=== PATIENT | male | born 1940 | race Caucasian/White ===

== ENCOUNTER 2018-03-08 08:00 | Outpatient (CLI) | payer BC, MEDICARE ==
[2018-03-08 18:59] LABS: BASOPHILS % (AUTO) 0.9 %; EOSINOPHILS % (AUTO) 0.5 %; HGB - HEMOGLOBIN 14.1 g/dL (14.0-18.0); LYMPHOCYTES # (AUTO) 1.2 10^3/uL (1.5-3.5); LYMPHOCYTES % (AUTO) 21.4 %; MEAN CORPUSCULAR HEMOGLOBIN 32.7 pg (27.0-31.0); MEAN CORPUSCULAR HGB CONC 33.2 g/dL (32.0-36.0); MEAN CORPUSCULAR VOLUME 98.3 fL (80.0-94.0); MEAN PLATELET VOLUME 8.2 fL (7.4-11.4); MONOCYTES # (AUTO) 0.4 10^3/uL (0.0-1.0); MONOCYTES % (AUTO) 6.5 %; NEUTROPHILS # (AUTO) 3.9 10^3/uL (1.5-6.6); NEUTROPHILS % (AUTO) 70.7 %; PLT - PLATELET COUNT 178 10^3/uL (130-450); RED BLOOD COUNT 4.32 10^6/uL (4.70-6.10); WHITE BLOOD COUNT 5.5 x10^3/uL (4.8-10.8)
[2018-03-08 19:24] LABS: ALBUMIN 4.1 g/dL (3.2-5.5); ALBUMIN/GLOBULIN RATIO 1.6 (1.0-2.2); ALKALINE PHOSPHATASE 80 IU/L (42-121); ALT ALANINE AMINOTRANSFERASE 21 IU/L (10-60); AST ASPARTATE AMINOTRANSFERASE 33 IU/L (10-42); BILIRUBIN,TOTAL 0.6 mg/dL (0.2-1.0); BUN - BLOOD UREA NITROGEN 17 mg/dL (6-20); CALCIUM 9.1 mg/dL (8.5-10.3); CARBON DIOXIDE - CO2 27 mmol/L (21-32); CHLORIDE 103 mmol/L (101-111); CHOL/HDL RATIO 4.2 (<5.0); CHOLESTEROL 215 mg/dL; GFR - MDRD 73 (>89); GLUCOSE 138 mg/dL (70-100); HDL CHOLESTEROL 51 mg/dL; LDL CHOLESTEROL,CALCULATED 110 mg/dL; LDL/HDL RATIO 2.2 (<3.6); SODIUM 138 mmol/L (135-145); TOTAL PROTEIN 6.7 g/dL (6.7-8.2); VLDL CHOLESTEROL 54 mg/dL
[2018-03-08 21:21] LABS: HB2 TOTAL 15.6 g/dL; HEMOGLOBIN A1C 0.64 g/dL; HEMOGLOBIN A1C % 5.9 % (4.6-6.2)
== END 2018-03-08 08:01 | disposition home or self-care (01) ==
LOC: LAB.WCP 08:00
PROVIDERS: ATTEND Family Medicine
DX: R73.01 Impaired fasting glucose (principal); E78.5 Hyperlipidemia, unspecified; G30.9 Alzheimer's disease, unspecified
CPT/HCPCS: 36415; 80053; 80061; 83036; 83721; 85025

== ENCOUNTER 2018-09-18 08:12 | Outpatient (CLI) | payer BC, MEDICARE ==
[2018-09-18 13:55] LABS: CHOL/HDL RATIO 3.6 (<5.0); CHOLESTEROL 182 mg/dL; HDL CHOLESTEROL 51 mg/dL; LDL CHOLESTEROL,CALCULATED 100 mg/dL; VLDL CHOLESTEROL 31 mg/dL
== END 2018-09-18 23:59 | disposition home or self-care (01) ==
LOC: LAB.WCP 08:12
PROVIDERS: ATTEND Nurse Practitioner
DX: E78.5 Hyperlipidemia, unspecified (principal)
CPT/HCPCS: 36415; 80061; 83721

== ENCOUNTER 2019-05-13 08:00 | Outpatient (CLI) | payer BC ==
[2019-05-13 13:10] LABS: ALBUMIN/GLOBULIN RATIO 1.5 (1.0-2.2); ALKALINE PHOSPHATASE 70 IU/L (42-121); ALT ALANINE AMINOTRANSFERASE 25 IU/L (10-60); AST ASPARTATE AMINOTRANSFERASE 27 IU/L (10-42); BILIRUBIN,TOTAL 0.6 mg/dL (0.2-1.0); BUN - BLOOD UREA NITROGEN 17 mg/dL (6-20); CALCIUM 8.9 mg/dL (8.5-10.3); CARBON DIOXIDE - CO2 26 mmol/L (21-32); CHLORIDE 104 mmol/L (101-111); CHOL/HDL RATIO 3.5 (<5.0); CHOLESTEROL 172 mg/dL; GFR - MDRD 72 (>89); GLUCOSE 111 mg/dL (70-100); HDL CHOLESTEROL 49 mg/dL; LDL CHOLESTEROL,CALCULATED 92 mg/dL; LDL/HDL RATIO 1.9 (<3.6); SODIUM 140 mmol/L (135-145); TOTAL PROTEIN 6.6 g/dL (6.7-8.2); VLDL CHOLESTEROL 31 mg/dL
[2019-05-13 13:17] LABS: HB2 TOTAL 15.3 g/dL; HEMOGLOBIN A1C 0.61 g/dL; HEMOGLOBIN A1C % 5.8 % (4.6-6.2)
== END 2019-05-13 23:59 | disposition home or self-care (01) ==
LOC: LAB.WCP 08:00
PROVIDERS: ATTEND Family Medicine
DX: E78.5 Hyperlipidemia, unspecified (principal); R73.01 Impaired fasting glucose; R41.3 Other amnesia
CPT/HCPCS: 36415; 80053; 80061; 83036; 83721; 84443

== ENCOUNTER 2019-10-22 10:48 | Outpatient (CLI) | payer BC ==
--- NOTE | 2019-10-22 14:35 | XRAY Report ---
Reason: COUGH Procedure Date: 10/22/2019 Accession Number: [id number] / [id number] Procedure: WCP - Chest 2 View X-Ray CPT Code: 94776 Final Report FULL RESULT: EXAM: CHEST RADIOGRAPHY. EXAM DATE: 10/22/2019 10:48 AM. CLINICAL HISTORY: Cough. COMPARISON: CHEST 2 VIEW PA/LAT 08/01/2017 10:27 PM. TECHNIQUE: 2 views. FINDINGS: Lungs/Pleura: There are increased pulmonary markings at the medial right lung base which are new, no air bronchogram formation or convincing lobar consolidation. No other focal opacities. No pleural effusion or pneumothorax. Mediastinum: Redemonstration of tortuous aorta and borderline mild cardiomegaly. Other: None. IMPRESSION: Increased pulmonary markings at the medial right lung base, possibly early airspace disease/atypical pneumonia. RADIA
== END 2019-10-22 23:59 | disposition home or self-care (01) ==
LOC: DI.WCP 10:48
PROVIDERS: ATTEND Family Medicine
DX: R05 Cough (principal); R91.8 Other nonspecific abnormal finding of lung field
CPT/HCPCS: 71046

== ENCOUNTER 2020-08-06 15:38 | Outpatient (CLI) | payer BC | END 2020-08-06 15:39 | disposition home or self-care (01) | LOC: COV 15:38 | PROVIDERS: ATTEND Family Medicine | DX: R50.9 Fever, unspecified (principal); R05 Cough; Z20.828 Contact with and (suspected) exposure to other viral communicable diseases ==

== ENCOUNTER 2020-11-15 15:17 | Emergency (ER) | payer BC ==
[2020-11-15 15:33] VITALS: BP 145/90
--- NOTE | 2020-11-15 16:08 | ED Physician Documentation ---
PD HPI LOWER EXT INJURY - Stated complaint Stated Complaint: FALL, LEFT KNEE INJURY - Chief complaint Chief Complaint: Trauma Ext - History obtained from History obtained from: Patient, Family - Additional information Additional information: Patient comes emergency department chief complaint of tripping and falling on some exercise equipment. He states that he injured his left kneeDates that she thinks the patient tripped on a bar and actually hit his knee on the floor. He has been able to ambulate on it, but states she had to get a cane they had at home and have him use it, because he was very distraught while trying to walk. Patient denies any other injuries anywhere else. confirms this. Patient has some degree of dementia, and is able to answer questions for himself, but needs to verify that answers are correct. Review of Systems Ten Systems: 10 systems reviewed and negative Constitutional: reports: Reviewed and negative Eyes: reports: Reviewed and negative Ears: reports: Reviewed and negative Nose: reports: Reviewed and negative Throat: reports: Reviewed and negative Cardiac: reports: Reviewed and negative Respiratory: reports: Reviewed and negative GI: reports: Reviewed and negative : reports: Reviewed and negative Skin: reports: Reviewed and negative Musculoskeletal: reports: Joint pain, Pain with weight bearing Neurologic: reports: Reviewed and negative Psychiatric: reports: Reviewed and negative Endocrine: reports: Reviewed and negative Immunocompromised: reports: Reviewed and negative PD PAST MEDICAL HISTORY - Past Medical History Cardiovascular: High cholesterol : Benign prostate hypertrophy Musculoskeletal: Osteoarthritis - Past Surgical History Past Surgical History: Yes General: Appendectomy Ortho: Spine surgery HEENT: Tonsil/Adenoidectomy - Allergies Allergies/Adverse Reactions: Allergies Allergy/AdvReac Type Severity Reaction Status Date / Time No Known Drug Allergies Allergy Verified 11/15/20 15:33 - Social History Does the pt smoke?: No Smoking Status: Never smoker Does the pt drink ETOH?: Yes Does the pt have substance abuse?: No - Immunizations Immunizations are current?: Yes PD ED PE NORMAL - Vitals Vital signs reviewed: Yes - General General: No acute distress, Well developed/nourished, Other (Patient is alert and answers questions appropriately.) - HEENT HEENT: Atraumatic, PERRL, EOMI, Moist mucous membranes - Neck Neck: Supple, no meningeal sign - Respiratory Respiratory: No respiratory distress - Derm Derm: Normal color, Warm and dry, No rash, Other (Mild contusion left superior knee at superior edge of patella) - Extremities Extremities: No deformity, No edema, No calf tenderness / cord, Other (No left knee edema. No deformity. No AP or mediolateral instability. No effusion. Mild pain with range of motion.) - Neuro Neuro: Alert and oriented X 3 - Psych Psych: Normal mood, Normal affect Results - Vitals Vitals: Vital Signs - 24 hr 11/15/20 15:27 Temperature 35.8 C L Heart Rate 68 Respiratory 14 Rate Blood Pressure 145/90 H O2 Saturation 95 Oxygen O2 Source Room air - Rads (name of study) L knee XR Radiology: Final report received, EMP read indepedently, See rad report (Negative) PD MEDICAL DECISION MAKING - ED course Complexity details: reviewed results, re-evaluated patient, considered differential, d/w patient, d/w family ED course: Due to the degree of pain with weightbearing, the patient was worked up with x- ray series of left knee. The left knee x-ray series was negative. I discussed symptomatic management at home for this patient, as well as the usual indications for return. Departure - Departure Disposition: 01 Home, Self Care Clinical Impression: Contusion of left knee Qualifiers: Encounter type: initial encounter Qualified Code(s): S80.02XA - Contusion of left knee, initial encounter Condition: Stable Instructions: ED Contusion Lower Ext Comments: The x-ray series looks good. There is no evidence of any breaks in your bones. You have most likely bruised your knee, which is caused the pain you are having. You may use ice, ibuprofen and Tylenol for this. You may use the cane or a walker to help you get around until your knee is feeling better.
--- NOTE | 2020-11-15 16:39 | XRAY Report ---
PROCEDURE: Knee 3 View LT INDICATIONS: pain/injury TECHNIQUE: 3 views of the left knee(s) were acquired. COMPARISON: None. FINDINGS: Bones: No fractures or dislocations. No suspicious bony lesions. Soft tissues: No joint effusion. No suspicious soft tissue calcifications. IMPRESSION: No visualized acute fracture or dislocation. However, occult injury cannot be excluded. Recommend short interval imaging follow-up in 7-10 days as clinically indicated for additional evalua tion. Reviewed by: Gini Bautista MD on 11/15/2020 4:38 PM PST Approved by: Gini Bautista MD on 11/15/2020 4:38 PM PST Station ID: [id number]
== END 2020-11-15 17:16 | disposition home or self-care (01) ==
LOC: ED 15:17
DX: S80.02XA Contusion of left knee, initial encounter (principal); W01.0XXA Fall on same level from slipping, tripping and stumbling without subsequent striking against object, initial encounter; Y93.A9 Activity, other involving cardiorespiratory exercise; Y92.39 Other specified sports and athletic area as the place of occurrence of the external cause
CPT/HCPCS: 99283

== ENCOUNTER 2020-12-08 08:00 | Outpatient (CLI) | payer BC ==
[2020-12-08 12:07] LABS: BASOPHILS % (AUTO) 0.7 %; EOSINOPHILS # (AUTO) 0.1 10^3/uL (0.0-0.7); HCT - HEMATOCRIT 43.7 % (42.0-52.0); HGB - HEMOGLOBIN 14.3 g/dL (14.0-18.0); LYMPHOCYTES # (AUTO) 1.7 10^3/uL (1.5-3.5); LYMPHOCYTES % (AUTO) 30.1 %; MEAN CORPUSCULAR HEMOGLOBIN 32.6 pg (27.0-31.0); MEAN CORPUSCULAR HGB CONC 32.7 g/dL (32.0-36.0); MEAN CORPUSCULAR VOLUME 99.8 fL (80.0-94.0); MEAN PLATELET VOLUME 9.7 fL (7.4-11.4); MONOCYTES # (AUTO) 0.4 10^3/uL (0.0-1.0); MONOCYTES % (AUTO) 7.8 %; NEUTROPHILS # (AUTO) 3.2 10^3/uL (1.5-6.6); NEUTROPHILS % (AUTO) 59.2 %; PLT - PLATELET COUNT 225 10^3/uL (130-450); RED BLOOD COUNT 4.38 10^6/uL (4.70-6.10); RED CELL DISTRIBUTION WIDTH 12.6 % (12.0-15.0); WHITE BLOOD COUNT 5.5 x10^3/uL (4.8-10.8)
[2020-12-08 12:49] LABS: ALBUMIN 4.3 g/dL (3.2-5.5); ALBUMIN/GLOBULIN RATIO 1.6 (1.0-2.2); BILIRUBIN,TOTAL 0.4 mg/dL (0.2-1.0); CALCIUM 9.3 mg/dL (8.5-10.3); CREATININE 1.1 mg/dL (0.6-1.2); POTASSIUM 4.1 mmol/L (3.5-5.0)
[2020-12-08 13:00] LABS: CHOL/HDL RATIO 3.8 (<5.0); CHOLESTEROL 191 mg/dL; HDL CHOLESTEROL 50 mg/dL; LDL CHOLESTEROL,CALCULATED 106 mg/dL; LDL/HDL RATIO 2.1 (<3.6); TRIGLYCERIDES 175 mg/dL; VLDL CHOLESTEROL 35 mg/dL
[2020-12-08 13:36] LABS: ESTIMATED AVERAGE GLUCOSE 123 mg/dL (70-100); HEMOGLOBIN A1c% 5.9 % (4.27-6.07)
== END 2020-12-08 23:59 | disposition home or self-care (01) ==
LOC: LAB.WCP 08:00
PROVIDERS: ATTEND Internal Medicine
DX: E78.5 Hyperlipidemia, unspecified (principal); R41.89 Other symptoms and signs involving cognitive functions and awareness; R73.01 Impaired fasting glucose; G30.9 Alzheimer's disease, unspecified
CPT/HCPCS: 36415; 80053; 80061; 82607; 82746; 83036; 83721; 85025

== ENCOUNTER 2021-04-05 08:00 | Outpatient (CLI) | payer BC ==
[2021-04-05 18:04] LABS: BASOPHILS % (AUTO) 0.6 %; EOSINOPHILS # (AUTO) 0.1 10^3/uL (0.0-0.7); EOSINOPHILS % (AUTO) 1.9 %; HCT - HEMATOCRIT 45.5 % (42.0-52.0); LYMPHOCYTES # (AUTO) 1.4 10^3/uL (1.5-3.5); LYMPHOCYTES % (AUTO) 27.7 %; MEAN CORPUSCULAR HEMOGLOBIN 32.8 pg (27.0-31.0); MEAN CORPUSCULAR VOLUME 99.6 fL (80.0-94.0); MEAN PLATELET VOLUME 9.6 fL (7.4-11.4); MONOCYTES # (AUTO) 0.4 10^3/uL (0.0-1.0); NEUTROPHILS # (AUTO) 3.2 10^3/uL (1.5-6.6); NEUTROPHILS % (AUTO) 62.4 %; PLT - PLATELET COUNT 241 10^3/uL (130-450); RED BLOOD COUNT 4.57 10^6/uL (4.70-6.10); RED CELL DISTRIBUTION WIDTH 12.5 % (12.0-15.0); WHITE BLOOD COUNT 5.2 x10^3/uL (4.8-10.8)
[2021-04-05 18:12] LABS: ALBUMIN 4.3 g/dL (3.2-5.5); ALBUMIN/GLOBULIN RATIO 1.4 (1.0-2.2); ALKALINE PHOSPHATASE 94 IU/L (42-121); ALT ALANINE AMINOTRANSFERASE 16 IU/L (10-60); AST ASPARTATE AMINOTRANSFERASE 19 IU/L (10-42); BILIRUBIN,TOTAL 0.5 mg/dL (0.2-1.0); BUN - BLOOD UREA NITROGEN 14 mg/dL (6-20); CALCIUM 8.8 mg/dL (8.5-10.3); CARBON DIOXIDE - CO2 28 mmol/L (21-32); CHLORIDE 102 mmol/L (101-111); CHOLESTEROL 219 mg/dL; GFR - MDRD 72 (>89); GLUCOSE 103 mg/dL (70-100); HDL CHOLESTEROL 44 mg/dL; LDL CHOLESTEROL,CALCULATED 147 mg/dL; LDL/HDL RATIO 3.3 (<3.6); SODIUM 138 mmol/L (135-145); TOTAL PROTEIN 7.4 g/dL (6.7-8.2); TRIGLYCERIDES 139 mg/dL; VLDL CHOLESTEROL 28 mg/dL
[2021-04-05 18:36] LABS: FOLATE 17.44 ng/mL (5.90 - >24.8)
== END 2021-04-05 23:59 | disposition home or self-care (01) ==
LOC: LAB.WCP 08:00
PROVIDERS: ATTEND Internal Medicine
DX: R41.89 Other symptoms and signs involving cognitive functions and awareness (principal); N40.1 Benign prostatic hyperplasia with lower urinary tract symptoms; Z79.899 Other long term (current) drug therapy; E78.00 Pure hypercholesterolemia, unspecified
CPT/HCPCS: 36415; 80053; 80061; 82607; 82746; 83721; 84153; 85025

== ENCOUNTER 2022-04-14 09:56 | Outpatient (CLI) | payer BC | END 2022-04-14 09:57 | disposition critical access hospital (66) | LOC: EMS 09:56 | DX: R55 Syncope and collapse (principal); R11.2 Nausea with vomiting, unspecified; R29.810 Facial weakness | CPT/HCPCS: A0425; A0427 ==

== ENCOUNTER 2022-04-14 10:00 | Emergency (ER) | payer BC ==
[2022-04-14] MEDS ORDERED: SODIUM CHLORIDE 0.9% 1,000 ML IV STA (10:22)
[2022-04-14 10:29] LABS: BASOPHILS % (AUTO) 0.6 %; EOSINOPHILS % (AUTO) 0.6 %; HCT - HEMATOCRIT 43.1 % (42.0-52.0); HGB - HEMOGLOBIN 14.8 g/dL (14.0-18.0); LYMPHOCYTES # (AUTO) 1.4 10^3/uL (1.5-3.5); MEAN CORPUSCULAR HEMOGLOBIN 33.1 pg (27.0-31.0); MEAN CORPUSCULAR HGB CONC 34.3 g/dL (32.0-36.0); MEAN CORPUSCULAR VOLUME 96.4 fL (80.0-94.0); MEAN PLATELET VOLUME 9.2 fL (7.4-11.4); MONOCYTES # (AUTO) 0.4 10^3/uL (0.0-1.0); MONOCYTES % (AUTO) 6.3 %; NEUTROPHILS # (AUTO) 5.1 10^3/uL (1.5-6.6); NEUTROPHILS % (AUTO) 72.4 %; PLT - PLATELET COUNT 202 10^3/uL (130-450); RED BLOOD COUNT 4.47 10^6/uL (4.70-6.10); RED CELL DISTRIBUTION WIDTH 12.6 % (12.0-15.0)
[2022-04-14 10:40] LABS: INR 1.1 (0.8-1.2); PT - PROTHROMBIN TIME 12.4 secs (9.9-12.6)
[2022-04-14 10:45] LABS: ALBUMIN/GLOBULIN RATIO 1.3 (1.0-2.2); BILIRUBIN,TOTAL 0.7 mg/dL (0.2-1.0); CALCIUM 9.2 mg/dL (8.5-10.3); CREATININE 1.2 mg/dL (0.6-1.2); POTASSIUM 3.9 mmol/L (3.5-5.0)
--- NOTE | 2022-04-14 10:58 | CT Report ---
PROCEDURE: HEAD WO INDICATIONS: facial droop, resolved TECHNIQUE: Noncontrast 4.5 mm thick angled axial sections acquired from the foramen magnum to the vertex. For r adiation dose reduction, the following was used: automated exposure control, adjustment of mA and/or kV according to patient size. COMPARISON: None. FINDINGS: Image quality: Excellent. CSF spaces: Basal cisterns are patent. No extra-axial fluid collections. Ventricles are normal in size and shape. Brain: There is moderate cerebral volume loss. Mild periventricular white matter chronic small vesse l ischemic changes are present. No midline shift. No intracranial masses or hemorrhage. Peoples-white matter interface is normal. Skull and face: Calvarium and visualized facial bones are intact, without suspicious lesions. Sinuses: There is an air-fluid level in the left maxillary sinus. Mastoids are clear. IMPRESSION: 1. No acute intracranial abnormality. 2. Cerebral volume loss and periventricular white matter chronic small vessel treatment changes. 3. Left maxillary sinusitis. Reviewed by: David Orellana MD on 04/14/2022 10:57 AM PDT Approved by: David Orellana MD on 04/14/2022 10:57 AM PDT Station ID: [id number]
--- NOTE | 2022-04-14 11:00 | ED Physician Documentation ---
PD HPI SYNCOPE - Stated complaint Stated Complaint: SOA/NEAR SYNCOPE - Chief complaint Chief Complaint: Neuro - History obtained from History obtained from: Patient, Family, EMS - Additional information Additional information: The patient is brought to the emergency department by EMS for chief complaint of vomiting and near syncopal episode x2. The patient denies any shortness of breath or chest pain. He does not now feel nauseated. The medics thought that the patient had a left facial droop in route, but no weakness was noted elsewhere. The patient's near syncopal episodes occurred once in the presence of his friends and once in the presence of the medics. Patient's states that he had just finished eating breakfast with friends when the first episode happened. Review of Systems Ten Systems: 10 systems reviewed and negative Constitutional: reports: Reviewed and negative Eyes: reports: Reviewed and negative Ears: reports: Reviewed and negative Nose: reports: Reviewed and negative Throat: reports: Reviewed and negative Cardiac: reports: Reviewed and negative Respiratory: reports: Reviewed and negative GI: reports: Reviewed and negative : reports: Reviewed and negative Skin: reports: Reviewed and negative Musculoskeletal: reports: Reviewed and negative Neurologic: reports: Reviewed and negative Psychiatric: reports: Reviewed and negative Endocrine: reports: Reviewed and negative Immunocompromised: reports: Reviewed and negative PD PAST MEDICAL HISTORY - Past Medical History Cardiovascular: High cholesterol Neuro: Alzhiemer's : Benign prostate hypertrophy Musculoskeletal: Osteoarthritis - Past Surgical History Past Surgical History: Yes General: Appendectomy Ortho: Spine surgery HEENT: Tonsil/Adenoidectomy - Allergies Allergies/Adverse Reactions: Allergies Allergy/AdvReac Type Severity Reaction Status Date / Time No Known Drug Allergies Allergy Verified 11/15/20 15:33 - Social History Does the pt smoke?: No Smoking Status: Never smoker Does the pt drink ETOH?: Yes Does the pt have substance abuse?: No - Immunizations Immunizations are current?: Yes PD ED PE NORMAL - Vitals Vital signs reviewed: Yes - General General: No acute distress, Well developed/nourished, Other (The patient is alert and though initially vomiting, by the time of full exam appears comfortable and in no distress.) - HEENT HEENT: Atraumatic, PERRL, EOMI, Moist mucous membranes - Neck Neck: Supple, no meningeal sign - Cardiac Cardiac: RRR, No murmur, Strong equal pulses - Respiratory Respiratory: No respiratory distress, Clear bilaterally - Abdomen Abdomen: Soft, Non tender, Non distended - Derm Derm: Normal color, Warm and dry, No rash - Extremities Extremities: No deformity, No edema - Neuro Neuro: credit and collections representative 2-12 intact (No facial droop whatsoever on exam.), No motor deficit (5+ strength bilateral upper and lower extremities, equal.), No sensory deficit, Normal speech (Clear with good articulation.), Other (Alert, answers questions clearly, though does not have recollection of the incident this morning.) - Psych Psych: Normal mood, Normal affect Results - Vitals Vitals: Vital Signs - 24 hr 04/14/22 04/14/22 10:05 12:13 Temperature 35.9 C L 36.7 C Heart Rate 59 L 69 Respiratory 18 17 Rate Blood Pressure 113/77 144/77 H O2 Saturation 97 93 Oxygen O2 Source Room air - EKG (time done) 1127 Rate: Rate (enter#) (66) Rhythm: NSR [place]: Normal, Anterior hemiblock Intervals: Normal CA QRS: Normal Ischemia: Normal ST segments Compare to prior EKG: Old EKG unavailable Computer interpretation: Agree with computer - Labs Labs: Laboratory Tests 04/14/22 04/14/22 04/14/22 10:23 10:23 10:23 WBC 7.0 RBC 4.47 L Hgb 14.8 Hct 43.1 MCV 96.4 H MCH 33.1 H MCHC 34.3 RDW 12.6 Plt Count 202 MPV 9.2 Neut # (Auto) 5.1 Lymph # (Auto) 1.4 L [place] # (Auto) 0.4 Eos # (Auto) 0.0 Baso # (Auto) 0.0 Absolute Nucleated RBC 0.00 Nucleated RBC % 0.0 PT 12.4 INR 1.1 Sodium 138 Potassium 3.9 Chloride 102 Carbon Dioxide 24 Anion Gap 12.0 BUN 15 Creatinine 1.2 Estimated GFR (MDRD) 58 L Glucose 133 H Calcium 9.2 Total Bilirubin 0.7 AST 23 ALT 19 Alkaline Phosphatase 93 Troponin I High Sens Total Protein 7.0 Albumin 4.0 Globulin 3.0 Albumin/Globulin Ratio 1.3 Lipase 28 04/14/22 10:23 WBC RBC Hgb Hct MCV MCH MCHC RDW Plt Count MPV Neut # (Auto) Lymph # (Auto) [place] # (Auto) Eos # (Auto) Baso # (Auto) Absolute Nucleated RBC Nucleated RBC % PT INR Sodium Potassium Chloride Carbon Dioxide Anion Gap BUN Creatinine Estimated GFR (MDRD) Glucose Calcium Total Bilirubin AST ALT Alkaline Phosphatase Troponin I High Sens 5.6 Total Protein Albumin Globulin Albumin/Globulin Ratio Lipase - Rads (name of study) CT head Radiology: Final report received, EMP read indepedently, See rad report (nad) PD MEDICAL DECISION MAKING - ED course Complexity details: reviewed results, re-evaluated patient, considered differential, d/w patient, d/w family ED course: The patient was seen immediately upon arrival the emergency department and since sent for CT scan of the head. Laboratory studies were also obtained. I did not feel that the patient qualified as a code stroke, because he did not have any neurologic deficits on my exam upon arrival, the reported to have a left facial droop by medics. The patient has a history of Alzheimer's and lives at home with his , who did come to be with him in the ED and contributed to the hi story. The patient's work-up was unremarkable. He was feeling better after fluids, and I felt he was stable for discharge. I have discussed with patient and the need to drink plenty of fluid at home and the usual indications for follow-up and return. Departure - Departure Disposition: 01 Home, Self Care Clinical Impression: Near syncope Condition: Stable Instructions: ED Near Syncope Vasovagal Comments: The laboratory studies, EKG, and head CT all look good. There is no evidence of a heart attack or stroke on exam or testing. You have been treated with a liter of saline solution, as it seems you have been not been drinking enough water lately. If the fainting or near fainting episodes become recurrent, you will need to follow-up with your primary doctor to discuss referral to cardiology. Discharge Date/Time: 04/14/22 13:09
[2022-04-14 12:59] VITALS: BP 144/77
== END 2022-04-14 13:09 | disposition home or self-care (01) ==
LOC: EDUNIT# → ED 10:00
DX: R55 Syncope and collapse (principal)
CPT/HCPCS: 36415; 80053; 83690; 84484; 85025; 85610; 93005; 96360; 99283

== ENCOUNTER 2023-05-12 00:13 | Outpatient (CLI) | payer BC | END 2023-05-12 23:59 | disposition critical access hospital (66) | LOC: EMS 00:13 | DX: R11.2 Nausea with vomiting, unspecified (principal); R40.0 Somnolence; R10.813 Right lower quadrant abdominal tenderness; R14.0 Abdominal distension (gaseous) | CPT/HCPCS: A0425; A0429 ==

== ENCOUNTER 2023-05-12 00:27 | Emergency (ER) | payer BC ==
--- NOTE | 2023-05-12 00:27 | ED Physician Documentation ---
PD HPI NVD - Stated complaint Stated Complaint: N/V - History obtained from History obtained from: EMS - Additonal information Additional information: BIBA. HPI from EMS (patient is baseline demented, cannot contribute to HPI/ROS). Per staff at patient's NH, he has been vomiting since this morning , increasing in frequency this evening with distended abdomen and coffee-ground appearance to emesis. FSBS by EMS 135. Patient is DNR. Review of Systems Unable to obtain: Dementia PD PAST MEDICAL HISTORY - Past Medical History Neuro: Dementia : Benign prostate hypertrophy - Present Medications Home Medications: Ambulatory Orders Medication Instructions Recorded Confirmed Acetaminophen [Tylenol] 500 mg PO Q4HR PRN 05/12/23 05/12/23 Bismuth Subsalicylate [[place] 524 mg PO DAILY PRN 05/12/23 05/12/23 Bismuth] Finasteride [Proscar] 5 mg PO DAILY 05/12/23 05/12/23 Hyoscyamine Sulfate 0.125 mg PO Q4HR PRN 05/12/23 05/12/23 LORazepam [Ativan] 1 mg PO Q6HR PRN 05/12/23 05/12/23 Loperamide HCl [Imodium A-D] 2 mg PO ONCE PRN 05/12/23 05/12/23 Magnesium Hydroxide [Milk of 2,400 mg PO DAILY PRN 05/12/23 05/12/23 Magnesia] Memantine HCl [Memantine HCl ER] 28 mg PO DAILY 05/12/23 05/12/23 Menthol/Zinc Oxide [Calmoseptine BID PRN 05/12/23 Ointment] Morphine Sulfate [Ms Contin] 15 mg PO Q4HR PRN 05/12/23 05/12/23 Neomycin Yu/Bacitrac Zn/Poly 28 gm TP DAILY PRN 05/12/23 05/12/23 [Triple Antibiotic Ointment] Nitrofurantoin [Macrobid] 100 mg PO BID #14 cap 05/12/23 Promethazine [Phenergan] 25 mg PO Q6H PRN 05/12/23 05/12/23 Rivastigmine Tartrate 4.5 mg PO BID 05/12/23 05/12/23 [Rivastigmine] Senna [Senokot] 8.6 mg PO BID 05/12/23 05/12/23 Simvastatin [Zocor] 20 mg PO DAILY 05/12/23 05/12/23 bisacodyL [Onelax] 10 mg RC DAILY PRN 05/12/23 05/12/23 metroNIDAZOLE 0.75% GEL [Flagyl 1 applic TOP DAILY 05/12/23 05/12/23 Gel] - Allergies Allergies/Adverse Reactions: Allergies Allergy/AdvReac Type Severity Reaction Status Date / Time No Known Drug Allergies Allergy Verified 05/12/23 00:47 - Living Situation Living Arrangement: reports: correction PD ED PE NORMAL - Vitals Vital signs reviewed: Yes - General General: No acute distress, Well developed/nourished, Other (drowsy, awakens to voice, fleeting eye contact. follows few commands. does not answer questions) - HEENT HEENT: Moist mucous membranes - Cardiac Cardiac: RRR - Respiratory Respiratory: No respiratory distress - Abdomen Abdomen: Soft, Non tender - Derm Derm: Normal color, Warm and dry PD ED PE EXPANDED - Respiratory Respiratory: Other (bibasilar rales) - Abdomen Abdomen: Decreased BS, Distended Results - Vitals Vitals: Oxygen O2 Source Nasal cannula - Labs Labs: Microbiology 05/12/23 03:05 Urine Culture - Final Urine,Clean Catch Klebsiella Pneumoniae Laboratory Tests 05/12/23 05/12/23 05/12/23 01:10 01:10 01:10 WBC 8.7 RBC 4.14 L Hgb 13.5 L Hct 40.5 L MCV 97.8 H MCH 32.6 H MCHC 33.3 RDW 13.3 Plt Count 236 MPV 8.9 Neut # (Auto) 6.8 H Lymph # (Auto) 0.9 L [place] # (Auto) 0.9 Eos # (Auto) 0.0 Baso # (Auto) 0.0 Absolute Nucleated RBC 0.00 Nucleated RBC % 0.0 PT 13.1 H INR 1.2 APTT 27.1 Sodium 136 Potassium 4.7 H Chloride 99 L Carbon Dioxide 32 Anion Gap 5.0 L BUN 16 Creatinine 1.1 Estimated GFR (MDRD) 64 L Glucose 135 H Calcium 9.2 Total Bilirubin 0.4 AST 20 ALT 16 Alkaline Phosphatase 96 Total Protein 7.3 Albumin 4.0 Globulin 3.3 Albumin/Globulin Ratio 1.2 Lipase 8 L Urine Color Urine Clarity Urine pH Ur Specific [place] Urine Protein Urine Glucose (UA) Urine Ketones Urine Occult Blood Urine Nitrite Urine Bilirubin Urine Urobilinogen Ur Leukocyte Esterase Urine RBC Urine WBC Ur Squamous Epith Cells Urine Bacteria Ur Microscopic Review Urine Culture Comments 05/12/23 03:05 WBC RBC Hgb Hct MCV MCH MCHC RDW Plt Count MPV Neut # (Auto) Lymph # (Auto) [place] # (Auto) Eos # (Auto) Baso # (Auto) Absolute Nucleated RBC Nucleated RBC % PT INR APTT Sodium Potassium Chloride Carbon Dioxide Anion Gap BUN Creatinine Estimated GFR (MDRD) Glucose Calcium Total Bilirubin AST ALT Alkaline Phosphatase Total Protein Albumin Globulin Albumin/Globulin Ratio Lipase Urine Color YELLOW Urine Clarity SL. CLOUDY Urine pH 7.0 Ur Specific [place] <=1.005 Urine Protein TRACE Urine Glucose (UA) NEGATIVE Urine Ketones NEGATIVE Urine Occult Blood SMALL H Urine Nitrite POSITIVE H Urine Bilirubin NEGATIVE Urine Urobilinogen 0.2 (NORMAL) Ur Leukocyte Esterase SMALL H Urine RBC 11-25 H Urine WBC 11-25 H Ur Squamous Epith Cells RARE Squamous Urine Bacteria Few Ur Microscopic Review INDICATED Urine Culture Comments INDICATED - Rads (name of study) CT A/P Relevant Findings:: Prelim report reviewed, See rad report chest xray Relevant Findings:: Prelim report reviewed, See rad report PD Medical Decision Making - ED course Complexity details: reviewed results, re-evaluated patient, considered differential ED course: No concerning nor diagnostic findings on CBC, ER abdominal panel. UA is c/w UTI. CT A/P interpreted by radiologist as distention and thickening of small bowel in central abdomen, differential includes enteritis or, less likely, early partial SBO. Also noted are small right pleural effusion and urinary bladder wall thickening. Given 1 gram rocephin for UTI and rx macrobid. Patient did not have any episodes of emesis during ED stay of over 6 hours. He is also given 4mg IV zofran and 40mg IV protonix early in ED stay. Departure - Departure Disposition: 01 Home, Self Care Clinical Impression: Urinary tract infection Qualifiers: Urinary tract infection type: acute cystitis Hematuria presence: with hematuria Qualified Code(s): N30.01 - Acute cystitis with hematuria Vomiting Qualifiers: Vomiting type: unspecified Nausea presence: unspecified Qualified Code(s): R11.10 - Vomiting, unspecified Condition: Good Instructions: ED UTI Cystitis Male, ED Nausea Vomiting Prescriptions: Nitrofurantoin [Macrobid] 100 mg PO BID #14 cap Comments: Urinalysis results are consistent with urinary tract infection for which you are given an antibiotic IV (ceftriaxone), and you are also being provided prescription for a 1 week course of antibiotic (Macrobid) to treat the urinary tract infection. The CT scan had mild but nonspecific abnormal distention of the small intestine, which could be due to mild small intestinal inflammation (enteritis) or a partial small bowel obstruction. After over six hours in the ER, you did not have any recurrence of vomiting and thus it is appropriate to discharge you home at this time. Certainly, you can return to the emergency department at any time for reevaluation, particularly if your symptoms worsen (vomiting, abdominal pain, blood in vomitus or stool). Forms: PCP List Discharge Date/Time: 05/12/23 08:27
[2023-05-12] MEDS ORDERED: PANTOPRAZOLE 40 MG VIAL IVP STA (00:54)
[2023-05-12 01:19] LABS: BASOPHILS % (AUTO) 0.2 %; HCT - HEMATOCRIT 40.5 % (42.0-52.0); HGB - HEMOGLOBIN 13.5 g/dL (14.0-18.0); LYMPHOCYTES # (AUTO) 0.9 10^3/uL (1.5-3.5); LYMPHOCYTES % (AUTO) 10.9 %; MEAN CORPUSCULAR HEMOGLOBIN 32.6 pg (27.0-31.0); MEAN CORPUSCULAR HGB CONC 33.3 g/dL (32.0-36.0); MEAN CORPUSCULAR VOLUME 97.8 fL (80.0-94.0); MEAN PLATELET VOLUME 8.9 fL (7.4-11.4); MONOCYTES # (AUTO) 0.9 10^3/uL (0.0-1.0); MONOCYTES % (AUTO) 9.8 %; NEUTROPHILS # (AUTO) 6.8 10^3/uL (1.5-6.6); NEUTROPHILS % (AUTO) 78.9 %; PLT - PLATELET COUNT 236 10^3/uL (130-450); RED BLOOD COUNT 4.14 10^6/uL (4.70-6.10); RED CELL DISTRIBUTION WIDTH 13.3 % (12.0-15.0); WHITE BLOOD COUNT 8.7 x10^3/uL (4.8-10.8)
[2023-05-12 01:28] LABS: INR 1.2 (0.8-1.2); PT - PROTHROMBIN TIME 13.1 secs (9.9-12.6)
[2023-05-12 01:32] LABS: ALBUMIN/GLOBULIN RATIO 1.2 (1.0-2.2); BILIRUBIN,TOTAL 0.4 mg/dL (0.2-1.0); CALCIUM 9.2 mg/dL (8.5-10.3); CREATININE 1.1 mg/dL (0.6-1.3); POTASSIUM 4.7 mmol/L (3.5-4.5); TOTAL PROTEIN 7.3 g/dL (6.4-8.9)
[2023-05-12 01:35] LABS: PARTIAL THROMBOPLASTIN TIME 27.1 secs (24.9-33.3)
[2023-05-12] MEDS ORDERED: ONDANSETRON 4 MG/2 ML VIAL IVP STA (01:37)
[2023-05-12] MEDS ORDERED: iohexoL-300 100 ML VIAL IVP ONE (02:40)
[2023-05-12 03:10] LABS: BILIRUBIN,URINE NEGATIVE (NEGATIVE); GLUCOSE, URINE (UA) NEGATIVE (NEGATIVE); KETONES,URINE (UA) NEGATIVE (NEGATIVE); LEUKOCYTE ESTERASE, URINE SMALL (NEGATIVE); NITRITE,URINE POSITIVE (NEGATIVE); OCCULT BLOOD,URINE SMALL (NEGATIVE); PROTEIN,URINE TRACE mg/dL (NEGATIVE); UROBILINOGEN,URINE 0.2 (NORMAL) E.U./dL (NORMAL)
[2023-05-12 03:14] LABS: CLARITY,URINE SL. CLOUDY (CLEAR)
[2023-05-12 03:17] LABS: BACTERIA,URINE Few /HPF (None Seen); SQUAMOUS EPITHELIAL CELL,UR RARE Squamous (<= Few)
[2023-05-12] MEDS ORDERED: cefTRIAXone 1 GM in SODIUM CHLORIDE 0.9% MINIBAG 100 ML IV STA (04:21)
[2023-05-12] MEDS ORDERED: cefTRIAXone 1 GM VIAL ONE (05:20)
--- NOTE | 2023-05-12 08:11 | CT Report ---
PROCEDURE: ABDOMEN/PELVIS W INDICATIONS: abdominal distention, hematemesis CONTRAST: 100 ML OMNI 300 TECHNIQUE: After the administration of contrast, 5 mm thick sections acquired from the diaphragms to the symphys is. 5 mm thick coronal and sagittal reformats were acquired. For radiation dose reduction, the foll owing was used: automated exposure control, adjustment of mA and/or kV according to patient size. COMPARISON: None FINDINGS: Image quality: Excellent. Lung bases and heart: Scant right pleural effusion. Liver: No solid mass. Gallbladder and biliary tree: Spleen: No splenomegaly. Pancreas: No pancreatic ductal dilation. Adrenals: No adrenal nodule. Kidneys and ureters: No hydronephrosis. No renal cystic lesion which requires follow up. No solid mas s. Simple cyst of the left kidney. Bowel and peritoneum: Mildly fluid distended and thickened small bowel loops are noted in the central abdomen. No convincing bowel obstruction. The large bowel is unremarkable. Lymph nodes: No central or retroperitoneal adenopathy. Vessels: No infrarenal aortic aneurysm. PELVIS Reproductive organs: Unremarkable. Bladder: Mild thickening likely due to underdistention. Pelvic lymph nodes: No pelvic adenopathy by size criteria. Bones: No aggressive osseous abnormality. Posterior fusion of L4-5. Other: No significant ventral or inguinal hernia. IMPRESSION: 1. Abnormal fluid distention and thickening of small bowel in the central abdomen. This may indicate mild enteritis or less likely partial small bowel obstruction, although no discrete transition point is identified. 2. Thickening of the urinary bladder probably due to underdistention. Please correlate with urinalysi s. 3. Trace right pleural effusion. Findings above correspond with preliminary findings by [facility]. Reviewed by: David Voss on 05/12/2023 8:10 AM PDT Approved by: David Voss on 05/12/2023 8:10 AM PDT Station ID: [id number]
--- NOTE | 2023-05-12 08:12 | XRAY Report ---
PROCEDURE: Chest 2 View X-Ray INDICATIONS: cough, dyspnea TECHNIQUE: 2 views of the chest were acquired. COMPARISON: None. FINDINGS: Surgical changes and devices: None. Lungs and pleura: No pleural effusions or pneumothorax. Lungs are clear except for probable bibasil ar atelectasis and low lung volumes. Mediastinum: Mediastinal contours appear normal. Heart size is enlarged. Bones and chest wall: No suspicious bony lesions. Overlying soft tissues appear unremarkable. IMPRESSION: Cardiomegaly with suboptimal inspiration and probable 5 basilar atelectasis. Findings above correspond with preliminary findings by [facility]. Reviewed by: David Voss on 05/12/2023 8:11 AM PDT Approved by: David Voss on 05/12/2023 8:11 AM PDT Station ID: [id number]
[2023-05-12 08:17] VITALS: BP 140/77
== END 2023-05-12 08:27 | disposition home or self-care (01) ==
LOC: EDUNIT# → ED 00:27
DX: N30.01 Acute cystitis with hematuria (principal); R11.10 Vomiting, unspecified
CPT/HCPCS: 36415; 71046; 74177; 80053; 81001; 83690; 85025; 85610; 85730; 87077; 87086; 87181; 96365; 96375; 99284; Q9967; 81003

== ENCOUNTER 2023-05-12 08:28 | Outpatient (CLI) | payer BC | END 2023-05-12 23:59 | disposition home or self-care (01) | LOC: EMS 08:28 | PROVIDERS: ATTEND Emergency Medicine | DX: R41.0 Disorientation, unspecified (principal); K52.9 Noninfective gastroenteritis and colitis, unspecified; N39.0 Urinary tract infection, site not specified | CPT/HCPCS: A0425; A0428 ==